=== PATIENT | female | born 1985 | race Caucasian/White ===

== ENCOUNTER 2021-01-20 09:45 | Outpatient (RCR) | payer MEDICARE, MEDICAID, SELFPAY ==
[2020-12-30 13:38] VITALS: BMI 18.2
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
--- NOTE | 2021-01-01 11:57 | PC.NURSE ---
Patient showed up for the [facility] morning meeting and stated she did not feel well c/o nausea and wanting to vomit, she stated she was going to take the day off from [facility]. Called patient afterwards and she stated she vomited up her morning coffee 3 days in a row including today. C/O anxiety and utilizing positive affirmations this morning. Patient reports she started Remeron last night. She discontinued the Anafranil and waiting for the side effects to discontinue including excessive sweating thus she did not sleep well as a result. Denies any ETOH use/substance use. Suggested she take her medications with food/crackers. Patient reports decreased appetite with 20 lb weight loss in 4 months. Patient stated she weighs 103 lbs Ht 5'3 /underweight. Stated this is due to anxiety and depression. Minimal food intake. Reports drinking Ensure TID. Drinking Gatorade and vitamin water. Patient interested in a dietary referral. Spoke to Demond SUÁREZ from patients PCP's office regarding significant weight loss and the need to f/u with patient and the need for a dietary referral. Demond stated he would f/u with patient and patients provider.
--- NOTE | 2021-01-02 07:47 | PC.NURSE ---
Case was opened in clinical team
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
--- NOTE | 2021-01-15 15:30 | PC.NURSE ---
I made a referral for the client to [facility] early recovery group program that offers one group a day. I spoke with Nadiya, She took the clients information and someone will be reaching out directly to the client about the program.
--- NOTE | 2021-01-19 14:50 | PC.NURSE ---
I informed the client about an appointment I set for her at [facility] with therapist Alejandro for @ 6pm I informed her that she will be getting a call and if she has to cancel to give them 48 hour notice.
--- NOTE | 2021-01-19 15:32 | PC.NURSE ---
Addendum entered by Rain Roth [facility] 01/19/21 15:52: [facility] will get back to me I spoke with Corazon Original Note: I spoke with the client about discharge pland. Last PHP day tuesday01/21/21. She has a prescriber and wants a therapist and substance IOP program. I called [facility] and referred her to their daily one hour recovery group program. I spoke with Nadiya. They will get back to me . I also called [facility] to secure an appointment time with a therapist for [place].
--- NOTE | 2021-01-19 15:55 | PC.NURSE ---
Client [place] therapy appointment set wit Leti from [facility] for February 17, 2021 at 6 pm . Leti will call her at that time for the intake.
--- NOTE | 2021-01-21 10:24 | PC.NURSE ---
Clinician reported pt left group enraged . Called pt that reported she was very frustrated and angry that she has felt that she hasn't gotten anything out of groups. Discussed the idea that she was so focused on helping others that she let herself take a backseat for treatment. Pt agreed. Discussed a referral for a CSP worker, asked clinician to make referral. Pt was more calm at the end of the call and reported she was going to take space and return to groups.
--- NOTE | 2021-01-21 11:59 | PC.NURSE ---
Pt did not attend second group. Called her to check in. She reported she just wanted to take the day and that she felt too emotional to participate. PT refused to complete dc review.
--- NOTE | 2021-01-21 14:14 | PM.EVENT ---
Event Note Date of Service: 01/21/21 Event Note: Pt no show to medication appointment on 01/21/2021.
--- NOTE | 2021-01-21 15:22 | PC.NURSE ---
I called [facility] to make a referral for a CSP worker for the client . I was told that Radha will get back to me.
--- NOTE | 2021-01-22 15:24 | PC.NURSE ---
Radha from [facility] left me a message this am re call intake at [phone] and give the client information to the intake person to get CSP worker. I attempted to call this afternoon but their phones were not working.
== END 2021-01-21 23:55 | disposition left against medical advice (07) ==
LOC: HO.PHPA 09:45
PROVIDERS: Visit Provider Psychiatry & Neurology Psychiatry
DX: F33.2 Major depressive disorder, recurrent severe without psychotic features (principal); F43.10 Post-traumatic stress disorder, unspecified; F31.12 Bipolar disorder, current episode manic without psychotic features, moderate; F10.21 Alcohol dependence, in remission; Z79.899 Other long term (current) drug therapy
CPT/HCPCS: 90791; 90853